=== PATIENT | female | born 1960 | race Caucasian/White ===

== ENCOUNTER 2016-03-27 16:49 | Emergency (ER) | payer MEDICAID, OTHER ==
[2016-03-27 17:38] VITALS: BP 122/72
--- NOTE | 2016-03-27 17:44 | UC ---
Lower Extremity/Ankle HPI - HPI Summary HPI Summary: Brief L hand swelling, then bilat lower leg redness and swelling with aching R> L starting a few days ago. Denies fever. Has recently gained weight; Dr. Paez told her last week he wouldn't see her anymore because she's too medically complicated. - History of Current Complaint Chief Complaint: UCLowerExtremity Stated Complaint: SWOLLEN LEG Time Seen by Provider: 03/27/16 17:26 Hx Obtained From: Patient Hx Last Menstrual Period: n/a ?: No Onset/Duration: Gradual Onset, Lasting Days Severity Initially: Mild Severity Currently: Moderate Aggravating Factor(s): Standing, Ambulation Alleviating Factor(s): Rest, Elevation Able to Bear Weight: Yes - Allergies/Home Medications Allergies/Adverse Reactions: Allergies Allergy/AdvReac Type Severity Reaction Status Date / Time Sulfa Drugs Allergy Swelling Verified 03/27/16 17:10 Of Face,Lips,& Throat Home Medications: Home Medications Albuterol HFA INHALER* [Ventolin HFA Inhaler*] 1 puff 03/27/16 [History] Buprenorphine/Naloxone SL TAB* [Suboxone 8-2 mg SL TAB*] 2 tab DAILY 03/27/16 [ History Confirmed 03/27/16] Divalproex Sodium [Depakote ER] 2 tab QAM 03/27/16 [History Confirmed 03/27/16] QUEtiapine TAB* [Seroquel TAB*] 100 mg PO BID 03/27/16 [History Confirmed ] QUEtiapine TAB* [Seroquel TAB*] 400 mg QPM 03/27/16 [History Confirmed 03/27/16] PMH/Surg Hx/FS Hx/Imm Hx Cardiovascular History Of: Reports: Hypertension - WELL CONTROLLED Denies: Pacemaker/ICD Respiratory History Of: Reports: COPD, Asthma Psychological History Of: Reports: Anxiety, Depression, Bipolar Disorder - Surgical History Surgical History: Yes Surgery Procedure, Year, and Place: COSMETIC EAR SURGERY A CHILD. APPENDIX AGE 12. GALLBLADDER AGE 20. [facility] 2012 [facility] - Family History Known Family History: Positive: Unknown - adopted, FHx unknown - Social History Occupation: Unemployed Lives: With Family Alcohol Use: Rare Substance Use Type: Other Substance Use Comment - Amount & Last Used: SUBOXONE Smoking Status (MU): Heavy Every Day Tobacco Smoker Type: Cigarettes Amount Used/How Often: 1PPD Have You Smoked in the Last Year: Yes Household Exposure Type: Cigarettes Cessation Counseling: Patient Advised to Stop - Immunization History Most Recent Influenza Vaccination: 4714-0279 Most Recent Tetanus Shot: unknown Most Recent Pneumonia Vaccination: never Review of Systems Constitutional: Negative Skin: Other - redness on legs Eyes: Negative ENT: Negative Respiratory: Negative Cardiovascular: Negative Gastrointestinal: Negative Genitourinary: Negative Motor: Negative Neurovascular: Negative Musculoskeletal: Edema - bilat legs Neurological: Negative Psychological: Negative All Other Systems Reviewed And Are Negative: Yes Physical Exam Triage Information Reviewed: Yes Appearance: Well-Appearing, No Pain Distress, Well-Nourished Vital Signs: Initial Vital Signs Temp 98.4 F 03/27/16 16:59 Pulse 65 03/27/16 16:59 Resp 16 03/27/16 16:59 BP 122/72 03/27/16 16:59 Pulse Ox 98 03/27/16 16:59 Vital Signs Reviewed: Yes Eye Exam: Normal Eyes: Positive: Conjunctiva Clear ENT Exam: Normal ENT: Positive: Normal ENT inspection, Hearing grossly normal, Pharynx normal, Pharyngeal erythema, Nasal congestion Dental Exam: Normal Neck exam: Normal Neck: Positive: Supple, Nontender, No Lymphadenopathy Respiratory Exam: Normal Respiratory: Positive: Chest non-tender, Lungs clear, Normal breath sounds, No respiratory distress, No accessory muscle use Cardiovascular Exam: Normal Cardiovascular: Positive: RRR, No Murmur Musculoskeletal: Positive: Edema @ - trace, in ankles Neurological Exam: Normal Psychological Exam: Normal Skin Exam: Other - redness in bilat shins and feet Lower Extremity Course/Dx - Differential Dx/Diagnosis Provider Diagnoses: peripheral edema Discharge - Discharge Plan Condition: Stable Disposition: HOME Patient Education Materials: Leg Edema (ED) Referrals: Charles Paez MD [Primary Care Provider] - [facility] [place] [facility] [Outside] Additional Instructions: Elevate your legs whenever you are having symptoms, and try to avoid extra salt in your diet. Please arrange for a primary care provider as soon as possible.
== END 2016-03-27 17:45 | disposition home or self-care (01) ==
LOC: UCEAST 16:49
DX: R60.0 Localized edema (principal); Z88.2 Allergy status to sulfonamides; F17.210 Nicotine dependence, cigarettes, uncomplicated
CPT/HCPCS: 99212; G0463

== ENCOUNTER 2016-06-07 20:58 | Emergency (ER) | payer OTHER ==
[2016-06-07 21:06] VITALS: BP 154/86
[2016-06-07] MEDS ORDERED: Cyclobenzaprine TAB* 10 MG PO ONE (21:22)
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
[2016-06-07] MEDS ORDERED: Tetan/Diph/Pertus SYR(Tdap)* 0.5 ML SYR(BOOSTRIX) use SYR IM ONE (21:34)
[2016-06-07] MEDS ORDERED: cefTRIAXone VIAL(*) 1,000 MG VIAL IM ONE (21:35)
[2016-06-07] MEDS ORDERED: Mupirocin 2% OINT* TUBE TOPICAL ONE (21:51)
[2016-06-07] MEDS ORDERED: Lidocaine 1% MPF* 2 ML VIAL ONE (21:54)
[2016-06-07] MEDS ORDERED: Mupirocin 2% CREAM* 15 GM TOPICAL ONE (22:01)
[2016-06-07] MEDS ORDERED: Cephalexin CAP* 500 MG PO ONE (22:02)
[2016-06-08] MEDS ORDERED: Mupirocin 2% OINT* TUBE TOPICAL ONE (21:44)
== END 2016-06-07 22:20 | disposition home or self-care (01) ==
LOC: UCEAST 20:58
DX: T25.022A Burn of unspecified degree of left foot, initial encounter (principal); T31.0 Burns involving less than 10% of body surface; X11.8XXA Contact with other hot tap-water, initial encounter; Y93.9 Activity, unspecified; Y92.9 Unspecified place or not applicable; Z23 Encounter for immunization; I10 Essential (primary) hypertension; Z88.2 Allergy status to sulfonamides; Z90.49 Acquired absence of other specified parts of digestive tract; F17.210 Nicotine dependence, cigarettes, uncomplicated; Z71.6 Tobacco abuse counseling
CPT/HCPCS: 87070; 87205; 87640; 87641; 90471; 90472; 90715; 96372; 99213; 99214; A9270-GY; G0463; J0696

== ENCOUNTER 2016-06-10 15:51 | Emergency (ER) | payer OTHER ==
[2016-06-10 16:59] VITALS: BP 140/74
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
== END 2016-06-10 18:19 | disposition home or self-care (01) ==
LOC: UCEAST 15:51
DX: T25.322D Burn of third degree of left foot, subsequent encounter (principal); X08.8XXD Exposure to other specified smoke, fire and flames, subsequent encounter; I10 Essential (primary) hypertension; Z88.2 Allergy status to sulfonamides; F17.210 Nicotine dependence, cigarettes, uncomplicated
CPT/HCPCS: 99212; G0463

== ENCOUNTER 2016-08-22 18:00 | Emergency (ER) | payer OTHER ==
[2016-08-22 18:09] VITALS: BP 138/81
--- NOTE | 2016-08-22 20:03 | UC ---
Throat Pain/Nasal Joe HPI - HPI Summary HPI Summary: complaint of nasal congestion and cough that startes approx 5-6 days ago very fatigued every time she takes a deep breath she starts to have a coughing fit whistling and wheezing in her chest tried nyquil and mucinex, cough drops without relief using inhalrs wothout relief denies fever and chills - History of Current Complaint Chief Complaint: UCRespiratory Stated Complaint: COUGH,RESP CONGESTION Time Seen by Provider: 08/22/16 19:57 Hx Obtained From: Patient Hx Last Menstrual Period: n/a - Allergies/Home Medications Allergies/Adverse Reactions: Allergies Allergy/AdvReac Type Severity Reaction Status Date / Time Sulfa Drugs Allergy Swelling Verified 06/10/16 16:59 Of Face,Lips,& Throat PMH/Surg Hx/FS Hx/Imm Hx Previously Healthy: Yes Respiratory History: COPD, Asthma - Surgical History Surgical History: Yes Surgery Procedure, Year, and Place: COSMETIC EAR SURGERY A CHILD. APPENDIX AGE 12. GALLBLADDER AGE 20. [facility] 2011 [facility] - Family History Known Family History: Positive: Unknown - adopted, FHx unknown Negative: Cardiac Disease, Hypertension, Diabetes - Social History Occupation: Employed Part-time Lives: With Family Alcohol Use: Rare Substance Use Type: Other Substance Use Comment - Amount & Last Used: SUBOXONE Smoking Status (MU): Heavy Every Day Tobacco Smoker Type: Cigarettes Amount Used/How Often: 1PPD Have You Smoked in the Last Year: Yes Household Exposure Type: Cigarettes Cessation Counseling: Patient Advised to Stop - Immunization History Most Recent Influenza Vaccination: [id number] Most Recent Tetanus Shot: unknown Most Recent Pneumonia Vaccination: never Review of Systems Constitutional: Fatigue Skin: Negative Eyes: Negative ENT: Nasal Discharge Respiratory: Cough Gastrointestinal: Negative Genitourinary: Negative Motor: Negative Neurovascular: Negative Musculoskeletal: Negative Neurological: Negative Psychological: Negative All Other Systems Reviewed And Are Negative: Yes Physical Exam Triage Information Reviewed: Yes Appearance: No Pain Distress, Ill-Appearing Vital Signs: Initial Vital Signs Temp 99 F 08/22/16 18:06 Pulse 78 08/22/16 18:06 Resp 20 08/22/16 18:06 BP 138/81 08/22/16 18:06 Pulse Ox 95 08/22/16 18:06 Vital Signs Reviewed: Yes Eyes: Positive: Conjunctiva Clear ENT: Positive: Pharyngeal erythema, Nasal congestion, Nasal drainage, TMs normal Neck: Positive: No Lymphadenopathy Respiratory: Positive: Rhonchi, Wheezing - throughout Cardiovascular: Positive: RRR, No Murmur, Pulses Normal Abdomen Description: Positive: Nontender, Soft Bowel Sounds: Positive: Present Musculoskeletal: Positive: No Edema Neurological: Positive: Alert Psychological Exam: Normal Skin Exam: Normal Re-Evaluation - Re-Evaluation First Eval Re-Evaluation Time: 21:15 Change: Improved - less wheezing and more air movement throughout Throat Pain/Nasal Course/Dx - Differential Dx/Diagnosis Differential Diagnosis/HQI/PQRI: URI, Other Provider Diagnoses: COPD excerbation Discharge - Discharge Plan Condition: Stable Disposition: HOME Prescriptions: DOXYcycline CAP(*) [DOXYcycline 100MG CAP(*)] 100 mg PO BID #20 cap predniSONE TAB* [Deltasone TAB*] 50 mg PO DAILY #5 tab Patient Education Materials: COPD (Chronic Obstructive Pulmonary Disease) (ED) Referrals: Nish Sands MD [Primary Care Provider] - Additional Instructions: Please take antibiotic as directed Use your albuterol inhaler every 4-6 hours when needed for wheezing, shortness of breath or uncontrolled coughing. Increase fluids and rest Take acetaminophen or ibuprofen for fever or pain Please review your discharge instructions. If your symptoms do not improve please call your primary care provider or return to urgent care.
[2016-08-22] MEDS ORDERED: Albuterol/Ipratropium NEB.SOL* Albuterol 2.5 MG/Ipratropium 0.5 MG 3 ML INH ONE (20:05)
[2016-08-22] MEDS ORDERED: predniSONE TAB* 20 MG PO ONE ×2 (20:12→21:22)
[2016-08-22] MEDS ORDERED: predniSONE TAB* 20 MG ONE (21:17)
[2016-08-22] MEDS ORDERED: Albuterol HFA INHALER* 8 gm MDI INH ONE (21:21)
== END 2016-08-22 21:33 | disposition home or self-care (01) ==
LOC: UCEAST 18:00
DX: J44.1 Chronic obstructive pulmonary disease with (acute) exacerbation (principal); F17.210 Nicotine dependence, cigarettes, uncomplicated; Z88.2 Allergy status to sulfonamides
CPT/HCPCS: 99213; A9270-GY; G0463; J7512

== ENCOUNTER 2016-09-12 16:07 | Emergency (ER) | payer OTHER ==
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
[2016-09-12] MEDS ORDERED: Amoxicillin/Clavulanate TAB* 875 MG PO ONE (18:21)
[2016-09-12 18:30] VITALS: BP 143/80
== END 2016-09-12 18:30 | disposition left against medical advice (07) ==
LOC: UCEAST 16:07
DX: J03.90 Acute tonsillitis, unspecified (principal); F17.210 Nicotine dependence, cigarettes, uncomplicated; M79.89 Other specified soft tissue disorders; M79.661 Pain in right lower leg
CPT/HCPCS: 99212; A9270-GY; G0463

== ENCOUNTER 2016-09-12 19:16 | Emergency (ER) | payer OTHER ==
--- NOTE | 2016-09-12 21:29 | RAD ---
Indication: Right leg pain and edema. Duplex Doppler sonography of the deep venous system of the right lower extremity deep venous system was performed. Bilaterally the common femoral veins appear patent and compressible. Right proximal greater saphenous vein, proximal deep femoral vein, femoral vein, popliteal vein, posterior tibial veins and peroneal veins appear patent and compressible. Popliteal cyst is noted in the right popliteal fossa measuring 27 x 10 x 32 mm. IMPRESSION: NO EVIDENCE OF DEEP VENOUS THROMBOSIS IS IDENTIFIED.
[2016-09-12 22:04] LABS: Hematocrit 45 % (35-47); Hemoglobin 15.3 g/dl (12.0-16.0); Mean Corpuscular HGB Conc 34 g/dl (31-36); Mean Corpuscular Hemoglobin 31 pg (27-31); Mean Corpuscular Volume 90 fL (80-97); Red Blood Count 5.01 10^6/ul (4.0-5.4); Red Cell Distribution Width 13 % (10.5-15); White Blood Count 8.5 10^3/ul (3.5-10.8)
[2016-09-12 22:06] LABS: Add Diff/Slide Review? Slide Review Added; Comments Flag Yes
[2016-09-12 22:09] LABS: Albumin 3.8 g/dL (3.2-5.2); BUN/Creatinine Ratio 11.9 (8-20); Calcium 9.5 mg/dL (8.6-10.3); EGFR African American 89.9 (>60); EGFR Non-African American 69.9 (>60); Globulin 3.6 g/dL (2-4); Total Bilirubin 0.6 mg/dL (0.2-1.0); Total Protein 7.4 g/dL (6.4-8.9)
--- NOTE | 2016-09-12 22:09 | RAD ---
Indication: Shortness of breath. 2 views of the chest including dual energy PA views demonstrate no mediastinal shift. Heart is of normal size and configuration. Lung bowie are clear. No pleural fluid is identified. IMPRESSION: No active cardiopulmonary disease is noted.
[2016-09-12 22:21] LABS: Potassium 4.1 mmol/L (3.5-5.0)
[2016-09-12 22:28] LABS: Mean Platelet Volume 7 um3 (7.4-10.4)
[2016-09-12] MEDS ORDERED: Clindamycin CAP* 150 MG PO ONE (22:38)
[2016-09-12 22:59] VITALS: BP 143/84
--- NOTE | 2016-09-14 13:53 | ED ---
Evangelist Douglass SooYoung, scribed for Esteban Verduzco MD on 09/12/16 at 2115 . Lower Extremity - HPI Summary HPI Summary: A 56 y/o F presents to ED referred by E with pedal edema. Pt actually went to [facility] for L ear pain and sore throat onset a few days ago. At the appt, the provider noticed pt's bilat pedal edema. Associated sx; erythema to bilat LE; mild SOB. Pt states her legs have been this way for the past two months or so. She denies recent travel, and says she sleeps with her legs elevated. 1PPD Smoker. - History of Current Complaint Chief Complaint: EDExtremityLower Stated Complaint: RIGHT LEG PAIN COMMING FROM [facility] Time Seen by Provider: 09/12/16 21:13 Hx Obtained From: Patient Hx Last Menstrual Period: n/a Onset/Duration: Still Present Severity Currently: Moderate Pain Intensity: 7 Pain Scale Used: 0-10 Numeric Timing: Constant, Lasting Weeks Associated Signs And Symptoms: Positive: Redness, Other - pos: SOB; L ear pain and sore throat Alleviating Factor(s): Elevation - Allergies/Home Medications Allergies/Adverse Reactions: Allergies Allergy/AdvReac Type Severity Reaction Status Date / Time Sulfa Drugs Allergy Swelling Verified 09/12/16 16:13 Of Face,Lips,& Throat PMH/Surg Hx/FS Hx/Imm Hx Previously Healthy: No Cardiovascular History: Reports: Hx Hypertension - WELL CONTROLLED, Other Cardiovascular Problems/Disorders - IRREGULAR HEART BEAT Denies: Hx Pacemaker/ICD Respiratory History: Reports: Hx Asthma, Hx Chronic Obstructive Pulmonary Disease (COPD) Musculoskeletal History: Reports: Hx Arthritis - BACK Sensory History: Reports: Hx Contacts or Glasses - GLASSES Denies: Hx Hearing Aid Opthamlomology History: Reports: Hx Contacts or Glasses - GLASSES Neurological History: Reports: Hx Headaches Psychiatric History: Reports: Hx Anxiety, Hx Attention Deficit Hyperactivity Disorder, Hx Depression, Hx Panic Disorder, Hx Inpatient Treatment, Hx Community Mental Health Tx, Hx Bipolar Disorder, Hx Suicide Attempt, Hx of Violent Episodes Against Others, Hx Substance Abuse Denies: Hx Eating Disorder - Surgical History Surgery Procedure, Year, and Place: COSMETIC EAR SURGERY A CHILD. APPENDIX AGE 12. GALLBLADDER AGE 20. [facility]ERNIA 2012 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 CLEAN SINCE 01/2016 Substance Use Comment - Amount & Last Used: SUBOXONE Hx Tobacco Use: Yes Smoking Status (MU): Heavy Every Day Tobacco Smoker Type: Cigarettes Amount Used/How Often: 1PPD Have You Smoked in the Last Year: Yes Review of Systems Negative: Fever Positive: Sore Throat, Ear Ache - L ear Positive: Shortness Of Breath Positive: Edema - RLE worse than LLE Positive: Other - erythema to RLE All Other Systems Reviewed And Are Negative: Yes Physical Exam Triage Information Reviewed: Yes Vital Signs On Initial Exam: Initial Vitals Temp Pulse Resp BP Pulse Ox 98.9 F 74 18 167/86 76 09/12/16 20:11 09/12/16 20:11 09/12/16 20:11 09/12/16 20:11 09/12/16 20:11 Vital Signs Reviewed: Yes Appearance: Positive: Well-Appearing, No Pain Distress Skin: Positive: Warm, Skin Color Reflects Adequate Perfusion, Dry Head/Face: Positive: Other - TENDER IN SUBMANDIBULAR AREA AT ANGLE OF THE MANDIBLE Eyes: Positive: Normal ENT: Positive: Normal ENT inspection Neck: Positive: Supple, Nontender, No Lymphadenopathy Respiratory/Lung Sounds: Positive: Clear to Auscultation, Breath Sounds Present Cardiovascular: Positive: RRR Abdomen Description: Positive: Nontender, Soft Bowel Sounds: Positive: Present Musculoskeletal: Positive: Other - TENDERNESS IN R COMMON FEMORAL CANAL; MILD PITTING EDEMA--R WORSE THAN L; RLE HAS A FEW SCRATCHES THAT ARE MILDLY ERYTHEMATOUS Neurological: Positive: Normal Psychiatric: Positive: Normal, Affect/Mood Appropriate Diagnostics - Vital Signs Vital Signs Temp Pulse Resp BP Pulse Ox 09/12/16 20:11 98.9 F 74 18 167/86 76 - Laboratory Lab Results: Lab Results 09/12/16 09/12/16 09/12/16 Range/Units 21:40 21:40 21:40 WBC 8.5 (3.5-10.8) 10^3/ul RBC 5.01 (4.0-5.4) 10^6/ul Hgb 15.3 (12.0-16.0) g/dl Hct 45 (35-47) % MCV 90 (80-97) fL MCH 31 (27-31) pg MCHC 34 (31-36) g/dl RDW 13 (10.5-15) % Plt Count 155 (150-450) 10^3/ul MPV 7 L (7.4-10.4) um3 Neut % (Auto) 62.8 (38-83) % Lymph % (Auto) 28.3 (25-47) % [place] % (Auto) 6.2 (1-9) % Eos % (Auto) 2.2 (0-6) % Baso % (Auto) 0.5 (0-2) % Absolute Neuts (auto) 5.3 (1.5-7.7) 10^3/ul Absolute Lymphs (auto) 2.4 (1.0-4.8) 10^3/ul Absolute Monos (auto) 0.5 (0-0.8) 10^3/ul Absolute Eos (auto) 0.2 (0-0.6) 10^3/ul Absolute Basos (auto) 0 (0-0.2) 10^3/ul Absolute Nucleated RBC 0.01 10^3/ul Nucleated RBC % 0.1 INR (Anticoag Therapy) 0.91 (0.89-1.11) D-Dimer, Quantitative 211 (Less Than 230) ng/mL Sodium 135 (133-145) mmol/L Potassium 4.1 (3.5-5.0) mmol/L Chloride 98 L (101-111) mmol/L Carbon Dioxide 32 (22-32) mmol/L Anion Gap 5 (2-11) mmol/L BUN 10 (6-24) mg/dL Creatinine 0.84 (0.51-0.95) mg/dL Est GFR ( Amer) 89.9 (>60) Est GFR (Non-Af Amer) 69.9 (>60) BUN/Creatinine Ratio 11.9 (8-20) Glucose 120 H (70-100) mg/dL Lactic Acid (0.5-2.0) mmol/L Calcium 9.5 (8.6-10.3) mg/dL Total Bilirubin 0.60 (0.2-1.0) mg/dL AST 22 (13-39) U/L ALT 16 (7-52) U/L Alkaline Phosphatase 121 H (34-104) U/L Troponin I 0.00 (<0.04) ng/mL B-Natriuretic Peptide ( - 100) pg/mL Total Protein 7.4 (6.4-8.9) g/dL Albumin 3.8 (3.2-5.2) g/dL Globulin 3.6 (2-4) g/dL Albumin/Globulin Ratio 1.1 (1-3) 09/12/16 09/12/16 Range/Units 21:40 21:40 WBC (3.5-10.8) 10^3/ul RBC (4.0-5.4) 10^6/ul Hgb (12.0-16.0) g/dl Hct (35-47) % MCV (80-97) fL MCH (27-31) pg MCHC (31-36) g/dl RDW (10.5-15) % Plt Count (150-450) 10^3/ul MPV (7.4-10.4) um3 Neut % (Auto) (38-83) % Lymph % (Auto) (25-47) % [place] % (Auto) (1-9) % Eos % (Auto) (0-6) % Baso % (Auto) (0-2) % Absolute Neuts (auto) (1.5-7.7) 10^3/ul Absolute Lymphs (auto) (1.0-4.8) 10^3/ul Absolute Monos (auto) (0-0.8) 10^3/ul Absolute Eos (auto) (0-0.6) 10^3/ul Absolute Basos (auto) (0-0.2) 10^3/ul Absolute Nucleated RBC 10^3/ul Nucleated RBC % INR (Anticoag Therapy) (0.89-1.11) D-Dimer, Quantitative (Less Than 230) ng/mL Sodium (133-145) mmol/L Potassium (3.5-5.0) mmol/L Chloride (101-111) mmol/L Carbon Dioxide (22-32) mmol/L Anion Gap (2-11) mmol/L BUN (6-24) mg/dL Creatinine (0.51-0.95) mg/dL Est GFR ( Amer) (>60) Est GFR (Non-Af Amer) (>60) BUN/Creatinine Ratio (8-20) Glucose (70-100) mg/dL Lactic Acid 1.4 (0.5-2.0) mmol/L Calcium (8.6-10.3) mg/dL Total Bilirubin (0.2-1.0) mg/dL AST (13-39) U/L ALT (7-52) U/L Alkaline Phosphatase (34-104) U/L Troponin I (<0.04) ng/mL B-Natriuretic Peptide 66 ( - 100) pg/mL Total Protein (6.4-8.9) g/dL Albumin (3.2-5.2) g/dL Globulin (2-4) g/dL Albumin/Globulin Ratio (1-3) Result Diagrams: 09/12/16 21:40 09/12/16 21:40 Lab Statement: Any lab studies that have been ordered have been reviewed, and results considered in the medical decision making process. - Radiology CXR Xray Interpretation: No Acute Changes - IMPRESSION: No active cardiopulmonary dz is noted. Radiology Interpretation Completed By: Radiologist - Ultrasound No standard instances Ultrasound Interpretation: No Acute Changes - IMPRESSION: No evidence of DVT is identified. Ultrasound Interpretation Completed By: Radiologist Lower Extremity Course/Dx - Course Course Of Treatment: Ms. Montgomery went to [facility] for pain in her left ear. She was noticed to have some leg swelling which she reports has been waxing and waning for months. She ruled out for DVT here and a d-dimer was negative. She reports some SOB but a PE study is not indicated by [facility]. I will treat her apparent parotis with outpatient antibiotics and encourage close F/U. - Diagnoses Provider Diagnoses: Parotitis, acute Discharge - Discharge Plan Condition: Stable Disposition: HOME Prescriptions: Clindamycin CAP* [Cleocin 150 MG CAP*] 300 mg PO Q6H #28 cap Patient Education Materials: Clindamycin (By mouth) Referrals: Nish Sands MD [Primary Care Provider] - 3 Days (Follow up within 2-3 days ) Additional Instructions: Follow up with your primary care provider in 2-3 days. Please return to the ED if you experience new or worsening symptoms. The documentation as recorded by the Evangelist hale SooYoung accurately reflects the service I personally performed and the decisions made by me, Esteban Verduzco MD.
== END 2016-09-12 22:59 | disposition home or self-care (01) ==
LOC: ED 19:16
DX: K11.21 Acute sialoadenitis (principal); H92.02 Otalgia, left ear; R06.02 Shortness of breath; F17.210 Nicotine dependence, cigarettes, uncomplicated
CPT/HCPCS: 36415; 71020; 80053; 83605; 83880; 84484; 85025; 85379; 85610; 99282; A9270-GY

== ENCOUNTER 2017-09-20 18:05 | Emergency (ER) | payer OTHER ==
[2017-09-20 18:54] VITALS: BP 173/92
--- NOTE | 2017-09-20 19:26 | UC ---
Abdominal Pain Female HPI - HPI Summary HPI Summary: has been feeling badly with worsening abdomen pain, bowel and bladder incont. fatigue, poor appetite - History of Current Complaint Chief Complaint: UCAbdominalPain Stated Complaint: ABD,PAIN VOMITING,INCONTINENT Time Seen by Provider: 09/20/17 18:42 Hx Obtained From: Patient Hx Last Menstrual Period: na ?: No Onset/Duration: Gradual Onset, Lasting Weeks - 2, Worse Since - getting worse daily Timing: Constant Pain Intensity: 10 Pain Scale Used: 0-10 Numeric Location: Discrete At: RUQ, Discrete At: RLQ Radiates: Yes Radiates to: Back Aggravating Factor(s): Nothing Alleviating Factor(s): Nothing Associated Signs and Symptoms: Positive: Fever, Urinary Symptoms, Decreased Appetite, Nausea Allergies/Adverse Reactions: Allergies Allergy/AdvReac Type Severity Reaction Status Date / Time Sulfa (Sulfonamide Allergy Intermediate swelling Verified 09/20/17 18:46 Antibiotics) facee lips Home Medications: Home Medications LORazepam [Lorazepam] 2 mg PO TID 09/20/17 [History Confirmed 09/20/17] Lisinopril 10 mg PO DAILY 09/20/17 [History Confirmed 09/20/17] PMH/Surg Hx/FS Hx/Imm Hx Previously Healthy: No Cardiovascular History: Hypertension Psychological History: Anxiety, Depression, Bipolar Disorder, Other Other Psychological History: opiate dependence in remission - Surgical History Surgical History: Yes Surgery Procedure, Year, and Place: COSMETIC EAR SURGERY A CHILD. APPENDIX AGE 12. GALLBLADDER AGE 20. HERNIA 2012 [facility]. [facility] - Family History Known Family History: Positive: Unknown - adopted, FHx unknown Negative: Cardiac Disease, Hypertension, Diabetes - Social History Occupation: Unemployed Lives: With Family Alcohol Use: Rare Substance Use Type: Other Substance Use Comment - Amount & Last Used: SUBOXONE Smoking Status (MU): Heavy Every Day Tobacco Smoker Type: Cigarettes Amount Used/How Often: 1PPD Have You Smoked in the Last Year: Yes Household Exposure Type: Cigarettes - Immunization History Most Recent Influenza Vaccination: [id number] Most Recent Tetanus Shot: unknown Most Recent Pneumonia Vaccination: never Review of Systems Constitutional: Chills, Fatigue Skin: Negative Eyes: Negative ENT: Negative Respiratory: Negative Cardiovascular: Negative Gastrointestinal: Abdominal Pain, Nausea Genitourinary: Dysuria, Frequency, Urgency Motor: Negative Neurovascular: Negative Musculoskeletal: Negative Neurological: Negative Psychological: Negative Is Patient Immunocompromised?: No All Other Systems Reviewed And Are Negative: Yes Physical Exam Triage Information Reviewed: Yes Appearance: Well-Nourished, Ill-Appearing - chronic and acute illness, Pain Distress Vital Signs: Initial Vital Signs Temp 100.2 F 09/20/17 18:38 Pulse 84 09/20/17 18:38 Resp 20 09/20/17 18:38 BP 173/92 09/20/17 18:38 Pulse Ox 98 09/20/17 18:38 Vital Signs Reviewed: Yes Eye Exam: Normal Eyes: Positive: Conjunctiva Clear ENT Exam: Normal ENT: Positive: Normal ENT inspection, Hearing grossly normal, Pharynx normal. Negative: Nasal congestion, Trismus, Muffled voice, Hoarse voice, Sinus tenderness Dental Exam: Normal Neck exam: Normal Neck: Positive: Supple, Nontender, No Lymphadenopathy Respiratory Exam: Normal Respiratory: Positive: Chest non-tender, Lungs clear, Normal breath sounds, No respiratory distress, No accessory muscle use Cardiovascular Exam: Normal Cardiovascular: Positive: RRR, No Murmur, Pulses Normal, Brisk Capillary Refill Abdominal Exam: Normal Abdomen Description: Positive: Soft, Distended, Hepatomegaly. Negative: No Organomegaly, CVA Tenderness (R), CVA Tenderness (L) Bowel Sounds: Positive: Present Musculoskeletal Exam: Normal Musculoskeletal: Positive: Strength Intact, ROM Intact Neurological Exam: Normal Neurological: Positive: Alert, Muscle Tone Normal Psychological Exam: Normal Skin Exam: Normal Diagnostics - Laboratory Diagnostic Studies Completed/Ordered: ua-+2 glucose Abd Pain Female Course/Dx - Course Course Of Treatment: NPO, to [facility] ED for further assessment and treatment - Differential Dx/Diagnosis Provider Diagnoses: acute abdomen pain Discharge - Sign-Out/Discharge Documenting (check all that apply): Patient Departure - Discharge Plan Condition: Fair Disposition: HOME-RECOMMEND TO ED Patient Education Materials: Acute Abdominal Pain (DC), Hypertension (ED) Forms: *Gen. Provider Communication Referrals: Fani Whelan MD [Primary Care Provider] - Additional Instructions: Nothing to eat or drink Please go directly to the emergency department for further assessment and care - Billing Disposition and Condition Condition: FAIR Disposition: Home-Recommend to ED
== END 2017-09-20 19:35 | disposition home health service (06) ==
LOC: UCEAST 18:05
DX: R10.11 Right upper quadrant pain (principal); R10.31 Right lower quadrant pain; R50.9 Fever, unspecified; R11.0 Nausea; R53.83 Other fatigue; R30.0 Dysuria; R35.0 Frequency of micturition; R39.15 Urgency of urination; I10 Essential (primary) hypertension; F41.9 Anxiety disorder, unspecified; F31.9 Bipolar disorder, unspecified; Z90.49 Acquired absence of other specified parts of digestive tract; Z88.2 Allergy status to sulfonamides; F17.210 Nicotine dependence, cigarettes, uncomplicated
CPT/HCPCS: 81003; 99212; G0463

== ENCOUNTER 2017-09-20 20:37 | Emergency (ER) | payer OTHER ==
[2017-09-20 23:06] LABS: ABS Basophils 0.1 10^3/ul (0-0.2); ABS Eosinophils 0.1 10^3/ul (0-0.6); ABS Lymphocytes 1.9 10^3/ul (1.0-4.8); ABS Monocytes 0.3 10^3/ul (0-0.8); ABS Neutrophils 3.8 10^3/ul (1.5-7.7); ABS Nucleated RBC 0 10^3/ul; Eosinophil % 0.9 % (0-6); Hematocrit 50 % (35-47); Hemoglobin 17.3 g/dl (12.0-16.0); Mean Corpuscular HGB Conc 35 g/dl (31-36); Mean Corpuscular Hemoglobin 30 pg (27-31); Mean Corpuscular Volume 86 fL (80-97); Mean Platelet Volume 7.4 um3 (7.4-10.4); Nucleated Red Blood Cells % 0.2; Platelet Count 152 10^3/ul (150-450); Red Blood Count 5.79 10^6/ul (4.00-5.40); Red Cell Distribution Width 13 % (10.5-15); White Blood Count 6.2 10^3/ul (3.5-10.8)
[2017-09-20 23:35] LABS: EGFR Non-African American 65.1 (>60)
--- NOTE | 2017-09-21 00:31 | ED ---
Abdominal Pain/Female - HPI Summary HPI Summary: This patient is a 57 year old F presenting [place] [facility] accompanied by with a chief complaint of mid abd pain that began 2 weeks ago. Pt reports that she can feel her hernia popping out, following a hernia repair in 2011. The patient rates the pain 10/10 in severity. Symptoms aggravated by nothing. Symptoms alleviated by nothing. Patient reports urinary incontinence, vomiting, recent weight loss, fever, and headache. - History of Current Complaint Chief Complaint: EDAbdPain Stated Complaint: ABD PAIN Time Seen by Provider: 09/21/17 00:20 Hx Obtained From: Patient Hx Last Menstrual Period: na ?: No Onset/Duration: Sudden Onset, Lasting Weeks, Still Present Timing: Constant Severity Initially: Severe Severity Currently: Severe Pain Intensity: 10 Pain Scale Used: 0-10 Numeric Location: Other - mid abd Aggravating Factor(s): Nothing Alleviating Factor(s): Nothing Associated Signs and Symptoms: Positive: Other: - Positive urinary incontinence , vomiting, recent weight loss, fever, and headache. Allergies/Adverse Reactions: Allergies Allergy/AdvReac Type Severity Reaction Status Date / Time Sulfa (Sulfonamide Allergy Intermediate swelling Verified 09/20/17 20:39 Antibiotics) facee lips PMH/Surg Hx/FS Hx/Imm Hx Previously Healthy: No Endocrine/Hematology History: Denies: Hx Diabetes, Hx Thyroid Disease Cardiovascular History: Reports: Hx Hypertension - WELL CONTROLLED, Other Cardiovascular Problems/Disorders - IRREGULAR HEART BEAT Denies: Hx Pacemaker/ICD Respiratory History: Reports: Hx Asthma, Hx Chronic Obstructive Pulmonary Disease (COPD) GI History: Denies: Hx Ulcer Musculoskeletal History: Reports: Hx Arthritis - BACK Sensory History: Reports: Hx Contacts or Glasses - GLASSES Denies: Hx Hearing Aid Opthamlomology History: Reports: Hx Contacts or Glasses - GLASSES Neurological History: Reports: Hx Headaches Psychiatric History: Reports: Hx Anxiety, Hx Attention Deficit Hyperactivity Disorder, Hx Depression, Hx Panic Disorder, Hx Inpatient Treatment, Hx Community Mental Health Tx, Hx Bipolar Disorder, Hx Suicide Attempt, Hx of Violent Episodes Against Others, Hx Substance Abuse Denies: Hx Eating Disorder - Surgical History Surgery Procedure, Year, and Place: COSMETIC EAR SURGERY A CHILD. APPENDIX AGE 12. GALLBLADDER AGE 20. HERNIA 2012 [facility] [facility] [place]x Anesthesia Reactions: No Infectious Disease History: No Infectious Disease History: Reports: Hx Hepatitis - A Denies: Hx Clostridium Difficile, Hx Human Immunodeficiency Virus (HIV), Hx of Known/Suspected MRSA, Hx Shingles, Hx Tuberculosis, Hx Known/Suspected VRE, Hx Known/Suspected VRSA, History Other Infectious Disease, Traveled Outside the [place] in Last 30 Days - Family History Known Family History: Positive: Unknown - adopted, FHx unknown - Social History Occupation: Unemployed Lives: With Family Alcohol Use: Rare Hx Substance Use: Yes Substance Use Type: Reports: Other Substance Use Comment - Amount & Last Used: SUBOXONE Hx Tobacco Use: Yes Smoking Status (MU): Heavy Every Day Tobacco Smoker Type: Cigarettes Amount Used/How Often: 1PPD Have You Smoked in the Last Year: Yes Review of Systems Positive: Fever Positive: Abdominal Pain, Vomiting, Other - Positive recent weight loss Positive: Headache All Other Systems Reviewed And Are Negative: Yes Physical Exam - Summary Physical Exam Summary: Appearance: Well-appearing, Well-nourished, lying in bed comfortably Skin: Warm, dry, no obvious rash Eyes: sclera anicteric, no conjunctival pallor ENT: mucous membranes moist, pharynx appears normal Neck: Supple, nontender Respiratory: Clear to auscultation, no signs of respiratory distress Cardiovascular: Normal S1, S2. No murmurs. Normal distal pulses in tibial and radial bilaterally. Abdomen: Soft, upper abdominal tenderness, normal active bowel sounds present Musculoskeletal: Normal, Strength/ROM Intact Neurological: A&Ox3, awake and alert, mentation is normal, speech is fluent and appropriate Psychiatric: affect is normal, does not appear anxious or depressed Triage Information Reviewed: Yes Vital Signs On Initial Exam: Initial Vitals Temp Pulse Resp BP Pulse Ox 99 F 95 17 157/82 95 09/20/17 20:39 09/20/17 20:39 09/20/17 20:39 09/20/17 20:39 09/20/17 20:39 Vital Signs Reviewed: Yes Diagnostics - Vital Signs Vital Signs Temp Pulse Resp BP Pulse Ox 09/20/17 20:39 99 F 95 17 157/82 95 - Laboratory Lab Results: Lab Results 09/20/17 09/20/17 09/20/17 Range/Units 22:54 22:54 23:56 WBC 6.2 (3.5-10.8) 10^3/ul RBC 5.79 H (4.00-5.40) 10^6/ul Hgb 17.3 H (12.0-16.0) g/dl Hct 50 H (35-47) % MCV 86 (80-97) fL MCH 30 (27-31) pg MCHC 35 (31-36) g/dl RDW 13 (10.5-15) % Plt Count 152 (150-450) 10^3/ul MPV 7.4 (7.4-10.4) um3 Neut % (Auto) 61.4 (38-83) % Lymph % (Auto) 31.0 (25-47) % [place] % (Auto) 5.6 (0-7) % Eos % (Auto) 0.9 (0-6) % Baso % (Auto) 1.1 (0-2) % Absolute Neuts (auto) 3.8 (1.5-7.7) 10^3/ul Absolute Lymphs (auto) 1.9 (1.0-4.8) 10^3/ul Absolute Monos (auto) 0.3 (0-0.8) 10^3/ul Absolute Eos (auto) 0.1 (0-0.6) 10^3/ul Absolute Basos (auto) 0.1 (0-0.2) 10^3/ul Absolute Nucleated RBC 0 10^3/ul Nucleated RBC % 0.2 Sodium 124 L (135-145) mmol/L Potassium TNP Chloride 89 L (101-111) mmol/L Carbon Dioxide 27 (22-32) mmol/L Anion Gap 8 (2-11) mmol/L BUN 14 (6-24) mg/dL Creatinine 0.89 (0.51-0.95) mg/dL Est GFR ( Amer) 78.8 (>60) Est GFR (Non-Af Amer) 65.1 (>60) BUN/Creatinine Ratio 15.7 (8-20) Glucose 556 H* (70-100) mg/dL Lactic Acid 1.6 (0.5-2.0) mmol/L Calcium 9.5 (8.6-10.3) mg/dL Total Bilirubin 0.90 (0.2-1.0) mg/dL AST TNP ALT 71 H (7-52) U/L Alkaline Phosphatase 193 H (34-104) U/L C-Reactive Protein 15.78 H (<8.01) mg/L Total Protein 7.9 (6.4-8.9) g/dL Albumin 4.1 (3.2-5.2) g/dL Globulin 3.8 (2-4) g/dL Albumin/Globulin Ratio 1.1 (1-3) Lipase 36 (11.0-82.0) U/L Result Diagrams: 09/20/17 22:54 09/20/17 23:56 Lab Statement: Any lab studies that have been ordered have been reviewed, and results considered in the medical decision making process. - CT CT Abdomen and Pelvis CT Interpretation Completed By: Radiologist - CT abdomen and pelvis reveals, per radiologist, no nephrolithiasis, ureterolithiasis or obstructive uropathy. No bladder calculi. Unremarkable pancreas and stomach. Cholecystectomy. Umbilical hernia repair appearing since 02/19/11. Hepatosplenomegaly and steatosis liver. No bowel obstruction, colitis, diverticulitis, free fluid or free air. Appendix not seen. Moderate feces colon. ED physician has reviewed this radiology report. Abdominal Pain Fem Course/Dx - Diagnoses Provider Diagnoses: New onset type 1 diabetes mellitus, uncontrolled Discharge - Sign-Out/Discharge Documenting (check all that apply): Patient Departure - Discharge Plan Condition: Good Disposition: HOME Prescriptions: glyBURIDE TAB* [Diabeta TAB*] 2.5 mg PO DAILY #30 tab metFORMIN* [Glucophage 1000 MG TAB *] 1,000 mg PO BID #60 tab Patient Education Materials: Type 2 Diabetes in Adults (ED) Forms: *Work Release Referrals: Fani Whelan MD [Primary Care Provider] - - Billing Disposition and Condition Condition: GOOD Disposition: Home
[2017-09-21] MEDS ORDERED: NS 0.9% 1000 ML* 2,000 ML IV ONE (00:34)
[2017-09-21] MEDS ORDERED: metFORMIN* 500 MG TAB PO ONE (02:05)
[2017-09-21] MEDS ORDERED: glyBURIDE TAB* 2.5 MG PO ONE (02:06)
[2017-09-21 02:13] LABS: Urine Appearance Clear; Urine Blood 1+ (Negative); Urine Color Yellow; Urine Ketones Negative (Negative); Urine Protein Negative (Negative); Urine Red Blood Cell Trace(0-2/hpf) (Absent); Urine Specific Gravity 1.036 (1.010-1.030); Urine Urobilinogen Negative (Negative); Urine White Blood Cell Trace(0-5/hpf) (Absent)
[2017-09-21 04:48] VITALS: BP 173/118
--- NOTE | 2017-09-21 11:02 | RAD ---
CLINICAL HISTORY: Upper abdominal pain. Relevant surgical history includes appendectomy, cholecystectomy and "hernia 2012" COMPARISON: CT of the abdomen and pelvis dated February 19, 2011 TECHNIQUE: Noncontrast CT examination of the abdomen and pelvis from the lung bases through the initial tuberosities. FINDINGS: VISUALIZED LUNG BASES: The visualized lung bases are grossly clear. There is no pleural effusion. ABDOMEN AND PELVIS: Evaluation of the solid organs and vasculature is limited without intravenous contrast. The liver is homogenously hypodense relative to the spleen. There are no focal liver masses or surface irregularity. The liver is enlarged measuring 21.9 cm in greatest cephalocaudal dimension. This is an increase since the most recent February 19, 2011 CT examination. The homogenously attenuating spleen is top normal measuring 12 cm in maximum dimension. The pancreas and adrenal glands are grossly normal in appearance. The gallbladder is surgically absent. The kidneys are normal in appearance without focal mass, calcification or signs of hydronephrosis. The small and large bowel are not distended.Appendix is not visualized consistent with the patient's surgical history. There is no gross retroperitoneal or mesenteric lymphadenopathy. The pelvic viscera is normal in appearance. The abdominal aorta and iliac arteries are normal in course and diameter. There is coarse atherosclerotic calcification at the inferior most abdominal aorta extending into the bilateral common iliac arteries. Degenerative changes include multilevel loss of intervertebral disc height involving the lower thoracic and lumbar spine most severe at L5/S1 where there is vacuum disc phenomenon..There are no sinister bone lesions. IMPRESSION: 1. There is no CT apparent acute abnormality of the gastrointestinal tract or urinary system that would account for the patient's current clinical presentation. 2. Interval development of hepatomegaly and likely hepatic steatosis since the February 19, 2011 CT examination. Please correlate to LFTs. 3. There are additional chronic, degenerative and iatrogenic findings described in the body the report.
== END 2017-09-21 04:48 | disposition home or self-care (01) ==
LOC: ED 20:37
DX: E10.65 Type 1 diabetes mellitus with hyperglycemia (principal); R16.2 Hepatomegaly with splenomegaly, not elsewhere classified; K76.0 Fatty (change of) liver, not elsewhere classified; R32 Unspecified urinary incontinence; I10 Essential (primary) hypertension; F17.210 Nicotine dependence, cigarettes, uncomplicated; Z90.49 Acquired absence of other specified parts of digestive tract; Z88.2 Allergy status to sulfonamides
CPT/HCPCS: 36415; 74176; 80053; 81003; 81015; 83036; 83605; 83690; 85025; 86140; 87086; 99284; A9270-GY

== ENCOUNTER 2017-10-27 18:44 | Emergency (ER) | payer OTHER ==
--- NOTE | 2017-10-27 19:58 | UC ---
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 Pain Intensity: 0 - Allergy/Home Medications Allergies/Adverse Reactions: Allergies Allergy/AdvReac Type Severity Reaction Status Date / Time Sulfa (Sulfonamide Allergy Intermediate swelling Verified 10/27/17 19:42 Antibiotics) facee lips Home Medications: Home Medications Gabapentin CAP(*) [Neurontin 300 CAP(*)] 800 mg PO QID 10/27/17 [History Confirmed 10/27/17] Naproxen TAB* [Naprosyn 375 mg TAB*] 375 mg PO BID PRN 10/27/17 [History Confirmed 10/27/17] Quetiapine Fumarate [Seroquel 400 MG] 400 mg PO BEDTIME 10/27/17 [History Confirmed 10/27/17] hydrOXYzine HCL TAB* [Atarax TAB 50 MG *] 50 mg PO BEDTIME 10/27/17 [History Confirmed 10/27/17] traZODone TAB* [Desyrel TAB*] 100 mg PO BEDTIME 10/27/17 [History Confirmed ] PMH/Surg Hx/FS Hx/Imm Hx - Surgical History Surgical History: Yes Surgery Procedure, Year, and Place: COSMETIC EAR SURGERY A CHILD. APPENDIX AGE 12. GALLBLADDER AGE 20. [facility] 2012 [facility]. CARPAL TUNNEL RELEASE 2012 - Family History Known Family History: Positive: Unknown - adopted, FHx unknown - Social History Alcohol Use: None Substance Use Type: Other Substance Use Comment - Amount & Last Used: SUBOXONE Smoking Status (MU): Heavy Every Day Tobacco Smoker Type: Cigarettes Amount Used/How Often: 1PPD Have You Smoked in the Last Year: Yes Household Exposure Type: Cigarettes - Immunization History Most Recent Influenza Vaccination: 3321-2956 Most Recent Tetanus Shot: unknown Most Recent Pneumonia Vaccination: never Physical Exam Vital Signs: Initial Vital Signs Temp 99.7 F 10/27/17 19:35 Pulse 78 10/27/17 19:35 Resp 16 10/27/17 19:35 BP 147/91 10/27/17 19:35 Pulse Ox 95 10/27/17 19:35 Discharge - Discharge Plan Referrals: Fani Whelan MD [Primary Care Provider] -
[2017-10-27 20:24] VITALS: BP 161/83
[2017-10-27] MEDS ORDERED: Albuterol/Ipratropium NEB.SOL* Albuterol 2.5 MG/Ipratropium 0.5 MG 3 ML INH ONE (20:41)
--- NOTE | 2017-10-27 20:53 | UC ---
General HPI - HPI Summary HPI Summary: Patient states she was started on insulin 10 IU every night and was instructed to increase to 20 IU QHS if FS were not controlled. Patient was doing well and FS were between 150-190 but she ran out of strips so she stopped glyburide and metformin for 4 days ago for fear of drawing her sugar too low. (she states she was instructed to do so). She started to have polyuria ever since. She also states she has a recurrence of heel pain since stopping the pills. She is a smoker and has been short of breath, she takes the advair inhaler that belong to her partner. She states she has her own blue inhaler, which name she does not remember. 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 Onset/Duration: Sudden Onset, Lasting Days Onset Severity: Mild Current Severity: Moderate Pain Intensity: 4 - Allergy/Home Medications Allergies/Adverse Reactions: Allergies Allergy/AdvReac Type Severity Reaction Status Date / Time Sulfa (Sulfonamide Allergy Intermediate swelling Verified 10/27/17 19:42 Antibiotics) facee lips Home Medications: Home Medications Gabapentin CAP(*) [Neurontin 300 CAP(*)] 800 mg PO QID 10/27/17 [History Confirmed 10/27/17] Naproxen TAB* [Naprosyn 375 mg TAB*] 375 mg PO BID PRN 10/27/17 [History Confirmed 10/27/17] Quetiapine Fumarate [Seroquel 400 MG] 400 mg PO BEDTIME 10/27/17 [History Confirmed 10/27/17] hydrOXYzine HCL TAB* [Atarax TAB 50 MG *] 50 mg PO BEDTIME 10/27/17 [History Confirmed 10/27/17] traZODone TAB* [Desyrel TAB*] 100 mg PO BEDTIME 10/27/17 [History Confirmed ] PMH/Surg Hx/FS Hx/Imm Hx Endocrine History: Diabetes Cardiovascular History: Hypertension Psychological History: Anxiety, Schizophrenia - Surgical History Surgical History: Yes Surgery Procedure, Year, and Place: COSMETIC EAR SURGERY A CHILD. APPENDIX AGE 12. GALLBLADDER AGE 20. [facility] 2012 [facility]. CARPAL TUNNEL RELEASE 2012 - Family History Known Family History: Positive: Unknown - adopted, FHx unknown - Social History Alcohol Use: None Substance Use Type: Other Substance Use Comment - Amount & Last Used: SUBOXONE Smoking Status (MU): Heavy Every Day Tobacco Smoker Type: Cigarettes Amount Used/How Often: 1PPD Have You Smoked in the Last Year: Yes Household Exposure Type: Cigarettes - Immunization History Most Recent Influenza Vaccination: [id number] Most Recent Tetanus Shot: unknown Most Recent Pneumonia Vaccination: never Review of Systems Constitutional: Negative Skin: Negative Eyes: Negative ENT: Negative Respiratory: Negative Cardiovascular: Negative Gastrointestinal: Abdominal Pain - chronic, since abdominal surgeries Genitourinary: Frequency Motor: Negative Neurovascular: Negative Musculoskeletal: Negative Neurological: Negative Psychological: Anxious All Other Systems Reviewed And Are Negative: Yes Physical Exam Triage Information Reviewed: Yes Appearance: Well-Appearing, No Pain Distress, Obese Vital Signs: Initial Vital Signs Temp 99.7 F 10/27/17 19:35 Pulse 78 10/27/17 19:35 Resp 16 10/27/17 19:35 BP 147/91 10/27/17 19:35 Pulse Ox 95 10/27/17 19:35 Eyes: Positive: Conjunctiva Clear ENT: Positive: Hearing grossly normal, Pharynx normal Neck: Positive: Supple, Nontender Respiratory: Positive: No respiratory distress, No accessory muscle use, Rhonchi Cardiovascular: Positive: RRR, No Murmur, Pulses Normal, Brisk Capillary Refill Abdomen Description: Positive: Nontender, No Organomegaly, Soft Bowel Sounds: Positive: Present Musculoskeletal: Positive: Strength Intact, ROM Intact, No Edema, Other: - tenderness left heel on palpation Course/Dx - Course Course Of Treatment: uncontrolled DM . FS 249mg%, advised to restart glyburide and metformin. Strips sent to pharmacy. Recurrence of plantar fasciitis, f/u with PCP. COPD exacerbation , start flovent and combivent. - Differential Dx - Multi-Symptom Provider Diagnoses: DM uncontrolled. COPD exacerbation. Plantar fasciitis Discharge - Sign-Out/Discharge Documenting (check all that apply): Patient Departure - Discharge Plan Condition: Good Disposition: HOME Prescriptions: Albuterol/Ipratropium RESP(NF) [Combivent Respimat(NF)] 1 aer IN QID PRN #1 aer PRN Reason: Shortness Of Breath Fluticasone DISKUS 250 MCG(NF) [Flovent Diskus 250 MCG(NF)] 2 puff INH BID #1 diskus Inhaler, Assist Devices [Space Chamber Plus] 1 each QID #1 spacer Referrals: Fani Whelan MD [Primary Care Provider] - Additional Instructions: please restart your medications glyburide and metformin, Start inhalers, smoking cessation is recommended - Billing Disposition and Condition Condition: GOOD Disposition: Home
== END 2017-10-27 22:00 | disposition home or self-care (01) ==
LOC: UCEAST 18:44
DX: E11.65 Type 2 diabetes mellitus with hyperglycemia (principal); J44.1 Chronic obstructive pulmonary disease with (acute) exacerbation; M72.2 Plantar fascial fibromatosis; F17.210 Nicotine dependence, cigarettes, uncomplicated; F20.9 Schizophrenia, unspecified; F41.9 Anxiety disorder, unspecified; Z79.4 Long term (current) use of insulin; Z79.84 Long term (current) use of oral hypoglycemic drugs; Z88.2 Allergy status to sulfonamides
CPT/HCPCS: 81003; 99212; A9270-GY; G0463

== ENCOUNTER 2018-02-04 15:40 | Emergency (ER) | payer OTHER ==
[2018-02-04] MEDS ORDERED: Nicotine Inhaler* 10 MG AMP INH PRN (16:10)
[2018-02-04] MEDS ORDERED: ALPRAZolam TAB* 0.25 MG PO ONE (16:11)
--- NOTE | 2018-02-04 16:12 | ED ---
Psychiatric Complaint - HPI Summary HPI Summary: Patient is a 57 y/o F w/ c/o anxiety, tearfulness, and difficulty living situation. In the room, patient is tearful. 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 She attends [facility] daily for therapy. PMHx of substance abuse is noted, has been clean for two years. Patient is DM1 insulin dependent but states that she has not been taking her insulin recently. She also states that her measuring device broke a few weeks ago. Patient notes decreased appetite. She states that she has been in her house for the past three weeks and "unable to move" as she lost her water at this time. Patient states that her water will be turned on again tomorrow. She claims difficulty living situation, reports hoarding at her house. Patient also reports she is achy. When asked if she has thoughts of suicide, she reports, "I'm a chicken." When asked why she came to ED , she states she wants to stop crying, wants to drink water. Fever, chills, erythema of eyes, sore throat, chest pain, SOB, cough, abdominal pain, vomiting, nausea, dysuria, hematuria, edema, rash and dizziness are not reported. On triage, pain is rated 0/10, nothing is noted to aggravate/ alleviate Sx. Home medications and allergies are reviewed. 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 Onset/Duration: Lasting Weeks - no water three weeks, Still Present Timing: Weeks - no water three weeks Severity Currently: None - pain denied Character: Anxious Aggravating Factor(s): Nothing Alleviating Factor(s): Nothing Associated Signs And Symptoms: Positive: Appetite Change - reports decreased appetite Has Suicidal: Denies: Thoughts - when asked is she experiences SI, she states "I 'm a chicken" - Allergies/Home Medications Allergies/Adverse Reactions: Allergies Allergy/AdvReac Type Severity Reaction Status Date / Time Sulfa (Sulfonamide Allergy Intermediate swelling Verified 10/27/17 19:42 Antibiotics) facee lips Home Medications: Home Medications Atorvastatin* [Lipitor*] 40 mg PO DAILY 02/04/18 [History Confirmed 02/04/18] Buprenorp/Nalox 8-2 MG FILM [Suboxone] 1 film SL DAILY 02/04/18 [History Confirmed 02/04/18] Buprenorphine HCl/Naloxone HCl [Suboxone 12 mg-3 mg Sl Film] 1 film SL DAILY [History Confirmed 02/04/18] Insulin Glargine,Hum.rec.anlog [Basaglar Kwikpen U-100] 0 unit SUBCUT DAILY [History Confirmed 02/04/18] LORazepam TAB(*) [Ativan 1 MG TAB (*)] 2 mg PO TID 02/04/18 [History Confirmed 02/04/18] Mirtazapine TAB* [Remeron TAB*] 15 mg PO BEDTIME 02/04/18 [History Confirmed ] QUEtiapine TAB* [Seroquel 300 MG TAB*] 400 mg PO DAILY 02/04/18 [History Confirmed 02/04/18] Zolpidem TAB* [Ambien TAB*] 5 mg PO BEDTIME PRN 02/04/18 [History Confirmed ] cloNIDine TAB* [Catapres 0.1 MG TAB*] 0.1 mg PO DAILY 02/04/18 [History Confirmed 02/04/18] metFORMIN* [Glucophage 500 MG TAB *] 1,000 mg PO BID 02/04/18 [History Confirmed 02/04/18] traZODone TAB* [Desyrel TAB*] 100 - 200 mg PO BEDTIME PRN 02/04/18 [History Confirmed 02/04/18] PMH/Surg Hx/FS Hx/Imm Hx Endocrine/Hematology History: Reports: Hx Diabetes Denies: Hx Thyroid Disease Cardiovascular History: Reports: Hx Hypertension - WELL CONTROLLED, Other Cardiovascular Problems/Disorders - IRREGULAR HEART BEAT Denies: Hx Pacemaker/ICD Respiratory History: Reports: Hx Asthma, Hx Chronic Obstructive Pulmonary Disease (COPD) GI History: Denies: Hx Ulcer Musculoskeletal History: Reports: Hx Arthritis - BACK Sensory History: Reports: Hx Contacts or Glasses - GLASSES Denies: Hx Hearing Aid Opthamlomology History: Reports: Hx Contacts or Glasses - GLASSES Neurological History: Reports: Hx Headaches Psychiatric History: Reports: Hx Anxiety, Hx Attention Deficit Hyperactivity Disorder, Hx Depression, Hx Panic Disorder, Hx Inpatient Treatment, Hx Community Mental Health Tx, Hx Bipolar Disorder, Hx Suicide Attempt, Hx of Violent Episodes Against Others, Hx Substance Abuse Denies: Hx Eating Disorder - Surgical History Surgery Procedure, Year, and Place: COSMETIC EAR SURGERY A CHILD. APPENDIX AGE 12. GALLBLADDER AGE 20. [facility] 2012 [facility]. CARPAL TUNNEL RELEASE 2013 Hx Anesthesia Reactions: No Infectious Disease History: No Infectious Disease History: Reports: Hx Hepatitis - A Denies: Hx Clostridium Difficile, Hx Human Immunodeficiency Virus (HIV), Hx of Known/Suspected MRSA, Hx Shingles, Hx Tuberculosis, Hx Known/Suspected VRE, Hx Known/Suspected VRSA, History Other Infectious Disease, Traveled Outside the [place] in Last 30 Days - Family History Known Family History: Positive: Unknown - adopted, FHx unknown - Social History Alcohol Use: None Hx Substance Use: Yes Substance Use Type: Reports: Other Substance Use Comment - Amount & Last Used: SUBOXONE Hx Tobacco Use: Yes Smoking Status (MU): Heavy Every Day Tobacco Smoker Type: Cigarettes Amount Used/How Often: 1PPD Have You Smoked in the Last Year: Yes Review of Systems Positive: Other - POSITIVE - TEARFUL, DIFFICULT LIVING SITUATION . Negative: Fever, Chills Negative: Erythema Negative: Sore Throat Negative: Chest Pain Negative: Shortness Of Breath, Cough Positive: Other - POSITIVE - DECREASED APPETITE . Negative: Abdominal Pain, Vomiting, Nausea Negative: dysuria, hematuria Positive: Myalgia - BODY ACHES . Negative: Edema Negative: Rash Neurological: Other - NEGATIVE - DIZZINESS Positive: Anxious, Other - WHEN ASKED IF SHE EXPERIENCES SI, SHE RESPONDS, "I'M A CHICKEN" All Other Systems Reviewed And Are Negative: Yes Physical Exam - Summary Physical Exam Summary: Constitutional: Well-developed, Well-nourished, Alert. (-) Distressed (+) Tearful Skin: Warm, Dry HENT: Normocephalic; Atraumatic Eyes: Conjunctiva normal Neck: Musculoskeletal ROM normal neck. (-) JVD, (-) Stridor, (-) Tracheal deviation Cardio: Rhythm regular, rate normal, Heart sounds normal; Intact distal pulses; The pedal pulses are 2+ and symmetric. Radial pulses are 2+ and symmetric. (-) Murmur Pulmonary/Chest wall: Effort normal. (-) Respiratory distress, (-) Wheezes, (-) Rales Abd: Soft, (-) epigastric tenderness, (-) Distension, (-) Guarding, (-) Rebound Musculoskeletal: (-) Edema Lymph: (-) Cervical adenopathy Neuro: Alert, Oriented x3 Psych: Mood and affect Normal Triage Information Reviewed: Yes Vital Signs On Initial Exam: Initial Vitals Temp Pulse Resp BP Pulse Ox 98.5 F 89 20 140/114 96 02/04/18 15:50 02/04/18 15:50 02/04/18 15:50 02/04/18 15:50 02/04/18 15:50 Vital Signs Reviewed: Yes Diagnostics - Vital Signs Vital Signs Temp Pulse Resp BP Pulse Ox 02/04/18 15:52 99.5 F 89 20 141/95 96 02/04/18 15:50 98.5 F 89 20 140/114 96 - Laboratory Lab Statement: Any lab studies that have been ordered have been reviewed, and results considered in the medical decision making process. Re-Evaluation - Re-Evaluation First Eval Re-Evaluation Time: 16:15 Change: Unchanged Comment: Patient medically cleared for MHE. Second Eval Re-Evaluation Time: 16:54 Change: Worse Comment: Patient is more anxious. She states that she feels hot and clammy and wants to "get out of her skin". She denies chest pain, SOB at this time, states she feels achy. Patient states, "I don't know what to do....slit my throat, I don't know". Patient will be placed on constant observation. Course/Dx - Course Course Of Treatment: Patient is a 57 y/o F w/ c/o anxiety, tearfulness, and difficulty living situation. In the room, patient is tearful. 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 She attends [facility] daily for therapy. PMHx of substance abuse is noted, has been clean for two years. Patient is DM1 insulin dependent but states that she has not been taking her insulin recently. She also states that her measuring device broke a few weeks ago. Patient notes decreased appetite. She states that she has been in her house for the past three weeks and "unable to move" as she lost her water at this time. Patient states that her water will be turned on again tomorrow. She claims difficulty living situation, reports hoarding at her house. Patient also reports she is achy. When asked if she has thoughts of suicide, she reports, "I'm a chicken." When asked why she came to ED, she states she wants to stop crying, wants to drink water. On physical exam, patient is noted to be tearful. Patient was medically cleared for MHE. 1653 - Patient is more anxious. She states that she feels hot and clammy and wants to "get out of her skin". She denies chest pain, SOB at this time, states she feels achy. Patient states, "I don't know what to do....slit my throat, I don't know". Patient will be placed on constant observation. Patient is signed out to Dr. Luevano pending disposition. - Differential Dx/Clinical Impression Provider Diagnosis: Depression, Anxiety Discharge - Sign-Out/Discharge Documenting (check all that apply): Sign-Out Patient Signing out patient TO: Esteban Luevano Receiving patient FROM: Wilbur Banks - Discharge Plan Referrals: Fani Whelan MD [Primary Care Provider] - - Attestation Statements Document Initiated by Scribe: Yes Documenting Scribe: EDUARDA KOO Provider For Whom Scribe is Documenting (Include Credential): WILBUR BANKS MD Scribe Attestation: I, EDUARDA KOO , scribed for WILBUR BANKS MD on 02/04/18 at 1814. Status of Scribe Document: Ready
[2018-02-04] MEDS ORDERED: LORazepam TAB(*) 1 MG PO ONE (16:58)
[2018-02-04] MEDS ORDERED: Acetaminophen TAB* 325 MG PO ONE (17:48)
--- NOTE | 2018-02-04 18:20 | ED ---
Progress - Progress Note Progress Note: Patient is received as a sign out from Dr. Banks to Dr. Luevano at 1730 pending disposition of this mental health patient. 1826 - Dr. Holbrook had reviewed the patient's case, patient will be discharged to home. Dr. Luevano is agreeable with this. - Consult/PCP Time Called: 16:35 Re-Evaluation - Re-Evaluation First Eval Re-Evaluation Time: 16:15 Change: Unchanged Comment: Patient medically cleared for MHE. Second Eval Re-Evaluation Time: 16:54 Change: Worse Comment: Patient is more anxious. She states that she feels hot and clammy and wants to "get out of her skin". She denies chest pain, SOB at this time, states she feels achy. Patient states, "I don't know what to do....slit my throat, I don't know". Patient will be placed on constant observation. Course/Dx - Course Course Of Treatment: Patient is received as a sign out from Dr. Banks to Dr. Luevano at 1730 02/04/18 pending disposition of this mental health patient. 1826 - Dr. Holbrook had reviewed the patient's case, patient will be discharged to home. Dr. Luevano is agreeable with this. - Diagnoses Provider Diagnoses: Anxiety - Provider Notifications Discussed Care Of Patient With: Altagracia Holbrook Time Discussed With Above Provider: 18:27 Instructed by Provider To: Other - Patient's case was reviewed by Dr. Holbrook, patient will be discharged to home. Dr. Luevano is agreeable with this. Discharge - Sign-Out/Discharge Documenting (check all that apply): Patient Departure - discharge - Discharge Plan Condition: Stable Disposition: HOME Patient Education Materials: Depression (ED), Anxiety (ED) Referrals: Fani Whelan MD [Primary Care Provider] - (Follow up as soon as possible) - Billing Disposition and Condition Condition: STABLE Disposition: Home - Attestation Statements Document Initiated by Scribe: Yes Documenting Scribe: EDUARDA KOO Provider For Whom Tania is Documenting (Include Credential): JADE LUEVANO MD Scribe Attestation: EDUARDA Douglass , scribed for JADE LUEVANO MD on 02/05/18 at 0202. Scribe Documentation Reviewed: Yes Provider Attestation: The documentation as recorded by the scribe, EDUARDA KOO accurately reflects the service I personally performed and the decisions made by me, JADE LUEVANO MD Status of Scribe Document: Viewed
[2018-02-04 18:45] VITALS: BP 142/72
== END 2018-02-04 18:43 | disposition home or self-care (01) ==
LOC: ED 15:40
DX: F32.9 Major depressive disorder, single episode, unspecified (principal); F41.9 Anxiety disorder, unspecified; E10.9 Type 1 diabetes mellitus without complications; Z79.4 Long term (current) use of insulin; Z79.84 Long term (current) use of oral hypoglycemic drugs; I10 Essential (primary) hypertension; Z88.2 Allergy status to sulfonamides; F17.210 Nicotine dependence, cigarettes, uncomplicated
CPT/HCPCS: 99282; A9270-GY

== ENCOUNTER 2018-04-06 15:44 | Emergency (ER) | payer SELFPAY ==
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
[2018-04-06] MEDS ORDERED: Cyclobenzaprine TAB* 10 MG PO ONE (16:34)
[2018-04-06] MEDS ORDERED: Naproxen TAB* 250 MG PO ONE (16:34)
[2018-04-06 18:02] VITALS: BP 140/80
== END 2018-04-06 18:02 | disposition home or self-care (01) ==
LOC: ED 15:44
DX: S09.90XA Unspecified injury of head, initial encounter (principal); V48.6XXA Car passenger injured in noncollision transport accident in traffic accident, initial encounter; Y92.410 Unspecified street and highway as the place of occurrence of the external cause; E11.9 Type 2 diabetes mellitus without complications; Z88.2 Allergy status to sulfonamides; I10 Essential (primary) hypertension; F41.9 Anxiety disorder, unspecified; F90.9 Attention-deficit hyperactivity disorder, unspecified type; F17.210 Nicotine dependence, cigarettes, uncomplicated
CPT/HCPCS: 70450; 72125; 99282; A9270-GY